=== PATIENT | male | born 1990 | race Two or more races ===

== ENCOUNTER 2016-12-11 21:21 | Emergency (ER) | payer SELFPAY ==
[~2016-12-11] VITALS: Ht 172.7 cm; Wt 77.1 kg
[2016-12-11 22:06] VITALS: BP 133/76
[2016-12-11] MEDS ORDERED: FAMO-63 PO (22:50)
[2016-12-11] MEDS ORDERED: PRED20TA PO (22:50)
--- NOTE | 2016-12-11 22:50 | PHYS DOC ---
Past Medical History Past Medical History: No Pertinent History Past Surgical History: Appendectomy Alcohol Use: None Drug Use: None Adult General Chief Complaint Chief Complaint: ALLERGIC REACTION HPI HPI Patient is a 26 year old male presents emergency department stating that he has hives throughout his body. He states that he has had these for the last 2 days. He does state that they changed laundry detergent. He denies any new foods or any new clothing that's not been washed. Patient denies any shortness of air difficulty breathing. He does state he's been taking Benadryl 2 tablets to help with the itching. Review of Systems Review of Systems Constitutional: Denies fever or chills [] Eyes: Denies change in visual acuity, redness, or eye pain [] HENT: Denies nasal congestion or sore throat [] Respiratory: Denies cough or shortness of breath [] Cardiovascular: No additional information not addressed in HPI [] GI: Denies abdominal pain, nausea, vomiting, bloody stools or diarrhea [] : Denies dysuria or hematuria [] Musculoskeletal: Denies back pain or joint pain [] Integument: Rash throughout body Neurologic: Denies headache, focal weakness or sensory changes [] Allergies Allergies Allergies Coded Allergies Type Severity Reaction Last Updated Verified No Known Drug Allergies 12/11/16 No Physical Exam Physical Exam Constitutional: Well developed, well nourished, no acute distress, non-toxic appearance. [] HENT: Normocephalic, atraumatic, bilateral external ears normal, oropharynx moist, no oral exudates, nose normal. [] Eyes: PERRLA, EOMI, conjunctiva normal, no discharge. [] Neck: Normal range of motion, no tenderness, supple, no stridor. [] Cardiovascular:Heart rate regular rhythm, no murmur [] Lungs & Thorax: Bilateral breath sounds clear to auscultation [] Skin: Warm, dry, no erythema patient was noted to have a urticarial type rash throughout bilateral arms chest and abdomen. Back: No tenderness Extremities: No tenderness, no cyanosis, no clubbing, ROM intact, no edema. [] Neurologic: Alert and oriented X 3, normal motor function, normal sensory function, no focal deficits noted. [] Psychologic: Affect normal, judgement normal, mood normal. [] Current Patient Data Vital Signs Vital Signs Date Time Temp Pulse Resp B/P Pulse Ox O2 Delivery O2 Flow Rate FiO2 12/11/16 22:06 97.5 74 18 99 Room Air 97.5 EKG EKG [] Radiology/Procedures Radiology/Procedures [] Course & Med Decision Making Course & Med Decision Making Pertinent Labs and Imaging studies reviewed. (See chart for details) Patient was provided with Pepcid and prednisone here in the emergency department. Recommended patient to continue take Benadryl at home 1 tablet every 4 hours as needed for itching. Also explained to patient that this medication will cause drowsiness do not take any be alert and oriented. Also spoke with patient regards to using Pepcid 20 mg daily for the next 7 days. Prescription for prednisone will be provided. Also recommended patient to not use the laundry detergent he's been using. Recommended him to go back to the detergent that he was using previously. Also recommended that he wash all of the clothing that had been previously washed with the new detergent. Patient agrees with discharge instructions treatment regimens and follow-up recommendations. Since symptoms to return back to emergency department as been provided. [] Dragon Disclaimer Dragon Disclaimer This electronic medical record was generated, in whole or in part, using a voice recognition dictation system. Departure Departure Impression: Primary Impression: Urticaria Disposition: 01 HOME, SELF-CARE Condition: STABLE Referrals: NO PCP (PCP) Patient Instructions: Contact Dermatitis, [id number] Additional Instructions: Activity as tolerated. Benadryl 25 mg every 4 hours as needed for itching. This medication will cause drowsiness do not take any be alert and oriented. Pepcid 20 mg daily for the next 7 days. Medications as prescribed You may also use Aveeno baths to help with soothing the skin. Keep the areas clean and dry and cool to decrease the irritation. Stop using the new laundry detergent and go back to your previous detergent. Follow-up to primary care physician as needed. Return back to emergency percent symptoms become worse. Scripts Famotidine (Pepcid)20 Mg [id number] Mg PO HS #7 TAB Prov:JAKE DILLARD INSULATION MANAGER 12/11/16 Prednisone 20 Mg [id number] Mg PO DAILY #10 TAB Prov:JAKE DILLARD INSULATION MANAGER 12/11/16 JAKE DILLARD NP Dec 11, 2016 22:50
[2016-12-11] MEDS ORDERED: PREDNISONE 20 MG TABLET PO ONE (23:00)
[2016-12-11] MEDS ORDERED: FAMOTIDINE 20 MG TABLET. PO ONE (23:00)
== END 2016-12-11 22:55 | disposition home or self-care (01) ==
LOC: ER 21:21
DX: L50.8 Other urticaria (principal)
CPT/HCPCS: 99283; J7512

== ENCOUNTER 2020-05-21 18:06 | Emergency (ER) | payer SELFPAY ==
[~2020-05-21] VITALS: Ht 175.3 cm; Wt 82.0 kg
[~2020-05-21 18:06] MED LIST: FAMO-63 PO; PRED20TA PO
[2020-05-21 18:18] VITALS: BP 145/79
[2020-05-21] MEDS ORDERED: ERYTHROMYCIN 0.5% OPHTH OINTMENT 1GM TUBE. OD ONE (18:30)
[2020-05-21] MEDS ORDERED: FLUORESCEIN OPHTH TEST STRIP. OD ONE (18:30)
[2020-05-21] MEDS ORDERED: TETRACAINE 0.5% OPHTH SOLUTION 4ML BOTTLE. OD ONE (18:30)
[2020-05-21] MEDS ORDERED: ERYT1OIN6 OP (18:32)
--- NOTE | 2020-05-21 18:34 | PHYS DOC ---
Past Medical History Past Medical History: No Pertinent History Past Surgical History: Appendectomy Smoking Status: Current Every Day Smoker Alcohol Use: Occasionally Drug Use: None General Adult EDM: Chief Complaint: EYE PROBLEMS HPI: HPI: Patient is a 30 year old male presents with right eye redness and irritation that started today while at work. 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 Patient reports he did wash his eye out for 10 minutes with some "eyewash "patient reports he did buy some eyedrops but reports his eye continues to be red and "swollen". Denies metal grinding or use of contacts. Denies change in vision. Review of Systems: Review of Systems: Constitutional: Denies fever or chills Eyes: Reports redness, eye pain, and foreign body sensation to right eye HENT: Denies nasal congestion or sore throat Respiratory: Denies cough or shortness of breath Cardiovascular: Denies chest pain or palpitations GI: Denies abdominal pain, nausea, or vomiting Musculoskeletal: Denies back pain or joint pain Integument: Denies rash or skin lesions Neurologic: Denies headache, focal weakness or sensory changes Complete systems were reviewed and found to be within normal limits, except as documented in this note. Allergies: Allergies: Allergies Coded Allergies Type Severity Reaction Last Updated Verified No Known Drug Allergies 12/11/16 No Physical Exam: PE: Constitutional: Well developed, well nourished, no acute distress HENT: Normocephalic, atraumatic Eyes: PERRL, EOMI, conjunctiva injected on right, no discharge, minimal fluorescein uptake at 11 o'clock position on wood's lamp exam, eyelid inverted without foreign body Neck: Normal range of motion, no tenderness, supple Lungs & Thorax: No respiratory distress, equal chest rise and fall Skin: Warm, dry, no erythema, no rash Neurologic: Alert and oriented X 3, no focal deficits noted Psychologic: Affect normal, judgment normal EKG: EKG: [] Radiology/Procedures: Radiology/Procedures: [] Course & Med Decision Making: Course & Med Decision Making Patient presents with concern for retained foreign body to right eye. Conjunctiva injected. Vision normal. No Ronald sign. Small corneal abrasion appreciated on Wood's lamp exam. Empiric erythromycin ophthalmic ointment applied. Prescription written. Patient stable for discharge with outpatient follow-up with PCP. Discussed findings and plan with patient and family, who acknowledge understanding and agreement. Dwaine Disclaimer: Dwaine Disclaimer: This electronic medical record was generated, in whole or in part, using a voice recognition dictation system. Departure Departure Impression: Primary Impression: Corneal abrasion, right Qualified Codes: S05.01XA - Injury of conjunctiva and corneal abrasion without foreign body, right eye, initial encounter Disposition: HOME, SELF-CARE Condition: STABLE Referrals: NO PCP (PCP) Patient Instructions: Eye - Corneal Abrasion, [id number] Additional Instructions: Use over the counter Tylenol and/or Ibuprofen for pain or discomfort. Scripts Erythromycin Base (Erythromycin) 1 Gm Oint...g. 0.25 INCH OP QID for 5 Days, #1 TUBE Prov: MELISSA PALACIO DO 05/21/20 Justicifation of Admission Dx: Justifications for Admission: Justification of Admission Dx: N/A MELISSA PALACIO DO May 21, 2020 18:34
== END 2020-05-21 19:15 | disposition home or self-care (01) ==
LOC: ER 18:06
DX: S05.01XA Injury of conjunctiva and corneal abrasion without foreign body, right eye, initial encounter (principal); L53.9 Erythematous condition, unspecified; R60.0 Localized edema; F17.200 Nicotine dependence, unspecified, uncomplicated; Z90.89 Acquired absence of other organs; Y29.XXXA Contact with blunt object, undetermined intent, initial encounter; Y93.89 Activity, other specified; Y92.89 Other specified places as the place of occurrence of the external cause; Y99.8 Other external cause status
CPT/HCPCS: 99283